=== PATIENT | male | born 1950 | race Caucasian/White ===

== ENCOUNTER 2016-12-04 11:47 | Emergency (ER) | payer OTHER ==
[~2016-12-04] VITALS: Ht 170.2 cm; Wt 68.0 kg
[~2016-12-04 11:47] MED LIST: HYDR1TAB69 PO; LISI10TA9 PO; [UNRECOGNIZED DRUG - OTHER] TOP
[2016-12-04 11:51] VITALS: BP 194/101; PULSE 74; RESP 16; O2SAT 95
--- NOTE | 2016-12-04 12:07 | ED.REPORT ---
HPI-General Illness Date of Service Dec 04, 2016 ED Provider: Ahsan Polanco MD Pt is a 66 year old male with a history of HTN who presents to the ED complaining of dull, aching left shoulder pain onset yesterday morning. He c/o associated confusion, SOB, fatigue, and left arm pain. He denies chest pain, SOB , lower extremity swelling, current confusion, difficulty speaking or finding words, nausea, diaphoresis, and headache. Pt presented to [facility] today and he was referred to the ED for further evaluation due to high blood pressure. 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 His pain is not exacerbated with exertion. Per pt, he has experienced his symptoms previously. He takes 20 mg lisinopril for his hypertension. Pt reports that he measures his blood pressure when he feels "funky," stating that he last checked it 2 weeks ago and it was 151. He denies a history of heart-related medical issues, but his mother has a history of heart-related medical issues that developed when she was 50. Nursing Notes Stated Complaint: HIGH BLOOD PRESSURE Chief Complaint: General Complaint Nursing Notes Reviewed: Yes (Ortho Neuro Management, meds not reconciled) Allergies: Coded Allergies: No Known Allergies (Unverified Allergy, Unknown, 12/27/13) Scheduled ([Betamethasone Dipro]) 0.05 % TOP DAILY Hydrochlorothiazide (Hydrochlorothiazide) 25 Mg Tablet 25 MG PO DAILY Lisinopril-Expunged Drug, Do Not Renew! (Lisinopril-Expunged Drug, Do Not Renew! ) 10 Mg Tablet 10 MG PO DAILY Scheduled PRN Hydrocod/APAP-Expunged, Do Not Renew! (VICODIN 5/500-Expunged Drug, Do Not Renew ) 1 Each Tablet 1 EACH PO Q4-6H PRN PRN General Time Seen by MD: 12:05 Chief Complaint Other (Left arm pain) Hx Obtained From: Patient Arrived By: Walk-in Sudden in Onset?: No Onset Occurred: Yesterday Symptom Duration: Since onset Location: : Arm left: Shoulder left Quality: Painful Severity: Current: Moderate Severity: Maximum: Moderate Recent Healthcare: Recent doctor visit Similar Sx Previous: No Past Medical History Past Medical History Reports: Hypertension, Denies: Coronary artery disease, Diabetes mellitus, Hyperlipidemia Past Surgical History L inguinal hernia Back Family History Cardiac-related issues - mother at 50 Smoking History Never Smoker Social History Alcohol Use: Denies alcohol use Other Social History: Good social support Ambulatory Status Independent Review of Systems Denies difficult finding words Full Review of Systems Constitutional: Reports: Fatigue Respiratory: Denies: Shortness of breath Cardiovascular: Denies: Chest pain GI: Denies: Nausea Musculoskeletal: Reports: Extremity pain, Joint pain (shoulder), Denies: Extremity swelling Skin: Denies Diaphoresis Neurologic: Denies: Headache, Unable to speak Psychiatric: Reports: Confusion (resolved) Complete sys rev & neg: except as marked. Physical Exam Vital Signs Vital Signs Date Time Temp Pulse Resp B/P Pulse Ox O2 Delivery O2 Flow Rate FiO2 12/04/16 14:54 55 20 140/76 98 Room Air 12/04/16 14:31 53 20 131/87 95 Room Air 12/04/16 13:48 55 20 124/76 96 Room Air 12/04/16 13:37 74 20 163/96 96 12/04/16 11:51 36.8 74 16 194/101 95 Room Air Initial VS: Reviewed, Vital signs abnormal (HTN) Head / Eyes: Atraumatic, Normocephalic Neck: Supple, Non-tender, Full range of motion Respiratory: Breath sounds normal, Clear to auscultation, No respiratory distress Cardiovascular: Regular rate & rhythm, Heart sounds normal, Intact distal pulses Abdomen / GI: Soft, Non-tender Extremities: Vascular intact, Neuro intact Skin: Warm, Dry, No cyanosis Neurologic: Alert, Oriented, Nonfocal Psychiatric: Mood/affect normal, Behavior normal General/Constitutional: Awake, Alert Hard of hearing Interpretation & Diagnostics Lab Results Interpretation Result Diagram: 12/04/16 1224 12/04/16 1224 Test 12/04/16 12:24 White Blood Count 10.2th/mm3 (3.8-10.1) Red Blood Count 5.47mil/mm3 (4.40-5.80) Hemoglobin 16.7g/dL (13.8-17.2) Hematocrit 48.1% (41.0-50.0) Mean Corpuscular Volume 87.9fL (81-100) Mean Corpuscular Hemoglobin 30.5pg (27.0-35.0) Mean Corpuscular Hemoglobin Concent 34.7% (32.0-37.0) Red Cell Distribution Width 13.8% (12.3-15.4) Platelet Count 258bil/L (150-400) Neutrophils (%) (Auto) 57.5% (40-74) Lymphocytes (%) (Auto) 33.9% (14-46) Monocytes (%) (Auto) 6.3% (4-12) Eosinophils (%) (Auto) 1.1% (0-5) Basophils (%) (Auto) 0.4% (0-3) Sodium Level 138mEq/L (134-144) Potassium Level 4.7mEq/L (3.5-5.2) Chloride Level 101mEq/L (97-108) Carbon Dioxide Level 22mmol/L (18-29) Blood Urea Nitrogen 16mg/dL (8-27) Creatinine 0.79mg/dL (0.76-1.27) Estimat Glomerular Filtration Rate 104mL/min (>59) Glucose Level 99mg/dL (60-99) Calcium Level 9.1mg/dL (8.5-10.1) Magnesium Level 1.8mg/dL (1.6-2.6) Total Bilirubin 0.6mg/dL (0.0-1.2) Aspartate Amino Transf (AST/SGOT) 18U/L (0-50) Alanine Aminotransferase (ALT/SGPT) 19U/L (0-44) Alkaline Phosphatase 85U/L (25-160) Troponin T 0.010ug/L (0.0-0.011) Total Protein 7.2g/dL (6.4-8.4) Albumin 4.2g/dL (3.4-5.0) Hold Worthington Top Tube Received (Received) Lab Results Interpretation: CBC normal CMP normal Troponin negative and after greater than 24 hours about continuous symptoms, serial markers are not indicated ECG Interpretation ECG Interpretation: q waves inferiorly, new compared to 04/2007 RBBB Left anterior vescicular block Time: 12:21 Interpreted by: ED physician Normal ECG Interpretation: Normal sinus rhythm (rate of 71) X-Ray Chest Interpretation Chest Xray Interpretation: IMPRESSION: Subtle left basilar pulmonary radiopacities. PA and lateral views of the chest are recommended to further characterize this finding. Differential considerations include overlapping vascular and bone shadows versus true airspace disease or pulmonary mass. Dictated by: Alba Fernandez M.D. on 12/04/2016 at 12:46 View: Portable, 1 view Interpretation / Wet Read by: Interpret - Radiologist CT Head Interpretation IMPRESSION: 1. No acute intracranial findings. 2. Mild finding likely associated with microvascular ischemic changes. Dictated by: Alba Fernandez M.D. on 12/04/2016 at 12:51 Study: Head CT no contrast Interpretation / Wet Read by: Interpret - Radiologist Re-Eval/Medical Decision Med Decision/Clinical Course This is a 66-year-old male presents with a chief complaint of high blood pressure, etc. he just felt tired. Left arm discomfort yesterday, not associated with chest pain, shortness of breath, but the fatigue-the symptoms are nonexertional reports she has had intermittent arm discomfort-is main concern was he knew his blood pressure was high. He measured his blood pressure last evening is in the 150s, and this morning was much higher high- density went to the clinic where his blood pressure was close to 200 and sent to the emergency department. He reports he has no complaints out of these at the [facility] department, he is not currently having any chest or arm discomfort. Denies prior history of heart disease. He is initially hypertensive. He is on lisinopril. He has no findings of heart failure evident on clinical exam, he is very hard of hearing which is chronic, but otherwise has a normal exam. EKG temperature is normal sinus rhythm, I do think there are Q waves that are new compared to his previous EKG many years ago in the inferior leads, although it is a bit difficult to be certain of this given the poor quality of the original EKG. Labs were entirely normal, including a negative troponin 24 hours after continuous symptoms-which indicates this is not a acute finding, particularly in the setting of Q waves. He reported a brief episode of confusion that was extremely mild yesterday, and a head CT was obtained was negative. He has no focal deficits or findings of a stroke today. He is not a care for TPA. The patient received a dose of labetalol his blood pressures markedly improved. His remain asymptomatic. At this point I am not finding markers and requires acute hospitalization, the plan is to add hydrochlorothiazide to his regimen of lisinopril and have him follow-up with his PCP for recheck and continue blood pressure monitoring. I believe he is a candidate for outpatient review whether or not a stress test may ultimately warranted, as the EKG abnormalities appear chronic, and his evaluation at apartments not demonstrating an acute problem. he is discharged in good condition. Source of Hx: Old records Time of Eval: 14:17 Patient Status: Condition improved Re-Evaluation/Progress Note: Pt rechecked. Informed pt of plan for discharge. Pt understands and agrees with plan for discharge. F/U instructions and RTER warnings given. All questions addressed. Differential Diagnosis: Negative: Abdominal pain, Acute coronary syndrome, Allergies, Diabetes mellitus, Fracture, Neutropenia, Pneumonia, Seizure disorder Counseled Regarding: Diagnosis, Lab results, Need for follow-up, When/why to return to ED Discharge & Departure Primary Impression: Hypertension Hypertension type: essential hypertension Qualified Code: I10 - Essential ( primary) hypertension Disposition: Home Discharge Condition All VS Reviewed: Yes Condition: Stable Additional Instructions: 1. Your blood tests were normal (no signs of a heart attack, heart damage, or kidney damage from the high blood pressure). 2. Your CT scan of your brain was normal. 3. I recommend adding hydrochlorithiazide (commonly referred to as "HCTZ") as an additional blood pressure medication to take along with your lisinopril. 4. Call for an appointment with your regular doctor for follow up. 5. Return if new or worsening symptoms. Referrals: Pancho Titus MD (PCP) Scribe Attestation Portions of this note were transcribed by Pham Guan. I, Dr. Polanco personally performed the history, physical exam and medical decision-making; I reviewed and confirmed the accuracy of the information in the transcribed note. Signed by: Rhina Delvalle, 12/04/16. copies to: Pancho Titus MD, Matthew F MD Dec 04, 2016 12:07 Pham Huddleston Dec 04, 2016 12:18
[2016-12-04] MEDS ORDERED: Labetalol 5 mg/mL 20 mL Inj IVPUSH ONE (12:25)
[2016-12-04 12:44] LABS: BASOPHILS % (AUTO) 0.4 % (0-3); EOSINOPHILS % (AUTO) 1.1 % (0-5); MONOCYTES % (AUTO) 6.3 % (4-12); Mean Corpuscular Hemoglobin 30.5 pg (27.0-35.0); Mean Corpuscular Volume 87.9 fL (81-100); NEUTROPHILS % (AUTO) 57.5 % (40-74); Platelet Count 258 bil/L (150-400)
--- NOTE | 2016-12-04 12:49 | DRSVH ---
PROCEDURE: X-RAY CHEST ONE VIEW, PORTABLE ([id number]) INDICATIONS: SHORT OF BREATH TECHNIQUE: One view of the chest was acquired. COMPARISON: [facility], , CHEST 2 VIEW, 02/09/2015, 19:27. [facility], CR, CHEST 2VW, 07/25/2011, 12:33. FINDINGS: Surgical changes and devices: None. Lungs and pleura: Subtle pulmonary radiopacities are present at the left lung base. These are new whe n compared with the prior study dated 02/09/15. No pleural effusion or pneumothorax. The lungs are ot herwise clear. Mediastinum: Mediastinal contours appear normal. Heart size is normal. Bones and chest wall: No suspicious bony lesions. Overlying soft tissues appear unremarkable. IMPRESSION: Subtle left basilar pulmonary radiopacities. PA and lateral views of the chest are recomm ended to further characterize this finding. Differential considerations include overlapping vascular and bone shadows versus true airspace disease or pulmonary mass. Dictated by: Alba Fernandez M.D. on 12/04/2016 at 12:46 Approved by: Alba Fernandez M.D. on 12/04/2016 at 12:48
--- NOTE | 2016-12-04 12:54 | DRSVH ---
PROCEDURE: CT BRAIN WITHOUT CONTRAST ([id number]) INDICATIONS: confusion, severe HTN TECHNIQUE: Noncontrast 4.5 mm thick angled axial sections acquired from the foramen magnum to the vertex, with c oronal reformats. COMPARISON: None. FINDINGS: Image quality: Excellent. CSF spaces: Basal cisterns are patent. No extra-axial fluid collections. The ventricles are symmet toan in size and shape. Brain: No intracranial bleeds or masses. There is cerebral volume loss for age, with resultant vent ricular and sulcal prominence. There are periventricular and deep white matter chronic small vessel ischemic changes. There is intracranial internal carotid artery atherosclerosis. Skull and face: Calvarium and visualized facial bones appear intact, without suspicious lesions. Sinuses: Visualized sinuses and mastoids are clear. IMPRESSION: 1. No acute intracranial findings. 2. Mild finding likely associated with microvascular ischemic changes. Dictated by: Alba Fernandez M.D. on 12/04/2016 at 12:51 Approved by: Alba Fernandez M.D. on 12/04/2016 at 12:52
[2016-12-04 13:11] LABS: TROPONIN T 0.01 ug/L (0.0-0.011)
[2016-12-04 13:22] LABS: Magnesium 1.8 mg/dL (1.6-2.6)
[2016-12-04 13:37] VITALS: BP 163/96; PULSE 74; RESP 20; O2SAT 96
[2016-12-04 13:48] VITALS: BP 124/76; PULSE 55; RESP 20; O2SAT 96
[2016-12-04 14:31] VITALS: BP 131/87; PULSE 53; RESP 20; O2SAT 95
[2016-12-04] MEDS ORDERED: HYDR25TA4 PO (14:33)
[2016-12-04 14:54] VITALS: BP 140/76; PULSE 55; RESP 20; O2SAT 98
== END 2016-12-04 14:56 | disposition home or self-care (01) ==
LOC: SED 11:47
DX: I10 Essential (primary) hypertension (principal); R41.0 Disorientation, unspecified; R06.02 Shortness of breath; R53.1 Weakness; M25.512 Pain in left shoulder

== ENCOUNTER 2016-12-23 15:54 | Observation (INO) | payer OTHER, MEDICARE ==
[~2016-12-23] VITALS: Ht 170.2 cm; Wt 67.1 kg
[2016-12-23] VITALS (7 sets, daily range): BP systolic 127–169; BP diastolic 69–87; PULSE 61–83; RESP 15–25; O2SAT 95–97
[~2016-12-23 15:54] MED LIST changes: +HYDR25TA4 PO
--- NOTE | 2016-12-23 16:17 | ED.REPORT ---
HPI-Chest Pain 40 and Over Date of Service Dec 23, 2016 ED Provider: Chico Stone MD The patient is a 67 year old male with a history of hypertension who presents to the ED via EMS with chest discomfort that began just prior to arrival. He describes a "band" of discomfort across his chest that is associated with generalized weakness, SOB and radiating right arm pain. EMS noted RBBB en route. The patient was recently prescribed nitro and he took 3 prior to arrival. Pain is not associated with exertion or "burning" acid reflux symptoms. Patient was seen in the ED 12/04/16 following a hypertensive episode and he was discharged in good condition following a reassuring work-up. He presents to the ED with identical chest/arm discomfort. He denies any recent cough or fever. BP today was normal at home. Current medication atorvastatin, clapitagril and nitro. Nursing Notes Stated Complaint: CHEST PAIN Chief Complaint: Chest Pain Nursing Notes Reviewed: Yes Allergies: Coded Allergies: Penicillins (Verified Allergy, Intermediate, 12/23/16) ciprofloxacin (Verified Allergy, Unknown, 12/23/16) Scheduled Atorvastatin (Lipitor) 10 Mg Tab 10 MG PO DAILY Clopidogrel (Clopidogrel) 75 Mg Tablet 75 MG PO DAILY Hydrochlorothiazide (Hydrochlorothiazide) 25 Mg Tablet 25 MG PO DAILY Lisinopril (Lisinopril) 20 Mg Tablet 20 MG PO QPM Scheduled PRN Nitroglycerin SL (Nitroglycerin SL) 0.4 Mg Tab.subl 0.4 MG SL Q5MIN PRN PRN For Chest Pain General Time Seen by MD: 16:12 Chief Complaint Chest pain Hx Obtained From: Patient Arrived By: Walk-in Sudden in Onset?: Yes Onset Occurred: Just prior to arrival Symptom Duration: Since onset Location: : Chest left: Chest right Quality: Painful Radiation: : Arm right: Does not radiate Migration/Movement: Reports: None Severity: Current: Moderate Severity: Maximum: Moderate Associated with: Reports: Shortness of Breath, Denies: Cough, non-productive, Fever Pertinent Negative: Pt denies other symptoms Recent Healthcare: No recent hospitalization, Recent doctor visit Similar Sx Previous: Yes Risk Factors )( CAD Risk Stratification Risk factors reviewed )( TAD Risk Stratification Risk factors reviewed )( PE Risk Stratification Risk factors reviewed Past Medical History Past Medical History Hypertension Past Surgical History L inguinal hernia Back Family History Cardiac-related issues - mother at 50 Smoking History Current Every Day Smoker, Heavy Tobacco Smoker (since 8 y.o) Social History Alcohol Use: Denies alcohol use Other Social History: Good social support, Local resident Ambulatory Status Independent Review of Systems Denies burning acid reflux pain Constitutional: Denies: Fever Respiratory: Reports: Shortness of breath, Denies: Non-productive cough Cardiovascular: Reports: Chest pain Musculoskeletal: Reports: Extremity pain (R arm pain) Complete sys rev & neg: except as marked. Physical Exam Initial Vital Signs Vital Signs (First) Date Time Temp Pulse Resp B/P Pulse Ox O2 Delivery O2 Flow Rate FiO2 12/23/16 16:13 36.2 79 22 127/72 96 Room Air Initial VS: Reviewed Head / Eyes: Atraumatic, Normocephalic, PERRL Neck: Supple, Non-tender, Full range of motion Extremities: Vascular intact, Neuro intact, No swelling, No tenderness Skin: Warm, Dry, No cyanosis Neurologic: Alert, Oriented, Nonfocal Psychiatric: Mood/affect normal, Behavior normal, Normal thought content General/Constitutional: Awake, Alert, No acute distress Respiratory / Chest: Atraumatic, Breath sounds NL, Breath sounds = bilat, No respiratory distress, No chest tenderness (No reporducible pain with palpation) Cardiovascular: Heart rate NL, Regular rhythm, Heart sounds NL, No gallop, No murmurs, No rubs No calf swelling or tenderness Abdomen: Atraumatic, Soft, Non-tender, No distention Interpretation & Diagnostics Lab Results Interpretation Result Diagram: 12/23/16 1718 12/23/16 1718 Test 12/23/16 17:18 White Blood Count 12.2th/mm3 (3.8-10.1) Red Blood Count 5.51mil/mm3 (4.40-5.80) Hemoglobin 16.8g/dL (13.8-17.2) Hematocrit 47.9% (41.0-50.0) Mean Corpuscular Volume 86.9fL (81-100) Mean Corpuscular Hemoglobin 30.5pg (27.0-35.0) Mean Corpuscular Hemoglobin Concent 35.1% (32.0-37.0) Red Cell Distribution Width 13.5% (12.3-15.4) Platelet Count 288bil/L (150-400) Neutrophils (%) (Auto) 69.8% (40-74) Lymphocytes (%) (Auto) 20.6% (14-46) Monocytes (%) (Auto) 7.4% (4-12) Eosinophils (%) (Auto) 1.1% (0-5) Basophils (%) (Auto) 0.4% (0-3) Sodium Level 137mEq/L (134-144) Potassium Level 3.9mEq/L (3.5-5.2) Chloride Level 100mEq/L (97-108) Carbon Dioxide Level 21mmol/L (18-29) Blood Urea Nitrogen 23mg/dL (8-27) Creatinine 0.97mg/dL (0.76-1.27) Estimat Glomerular Filtration Rate 82mL/min (>59) Glucose Level 118mg/dL (60-99) Calcium Level 9.3mg/dL (8.5-10.1) Magnesium Level 2.0mg/dL (1.6-2.6) Total Bilirubin 0.5mg/dL (0.0-1.2) Aspartate Amino Transf (AST/SGOT) 19U/L (0-50) Alanine Aminotransferase (ALT/SGPT) 24U/L (0-44) Alkaline Phosphatase 83U/L (25-160) Total Protein 7.1g/dL (6.4-8.4) Albumin 4.0g/dL (3.4-5.0) Hold [place]thing[place] Top Tube Received (Received) ECG Interpretation ECG Interpretation: Sinus rhythm Rate 77 bpm RBBB and Left anterior fasicular block No acute ST segment changes No T wave abnormalities Compared to prior 12/04/16 - No change Time: 16:34 Interpreted by: ED physician X-Ray Chest Interpretation Chest Xray Interpretation: IMPRESSION: No acute disease Dictated by: Juan Crowley M.D. on 12/23/2016 at 16:08 Interpretation / Wet Read by: Interpret - Radiologist Re-Eval/Medical Decision Med Decision/Clinical Course The patient is a 67 year old male with a history of hypertension who presents to the ED via EMS with chest discomfort that began just prior to arrival. He describes a "band" of discomfort across his chest that is associated with generalized weakness, SOB and radiating right arm pain. EMS noted RBBB en route. The patient was recently prescribed nitro and he took 3 prior to arrival. He saw his primary care physician for his chest pain earlier today and an outpatient stress test was ordered however he continues to have worsening chest pain. Here in the emergency department the patient was afebrile with stable vital signs and examination as above. 324 mg of aspirin were given. He reports that he is now chest pain-free. EKG Sinus rhythm Rate 77 bpm RBBB and Left anterior fasicular block No acute ST segment changes No T wave abnormalities Compared to prior 12/04/16 - No change Chest X-ray IMPRESSION: No acute disease LABS Trop x2 negative CBC - Leukocytosis 12.2 CMP unremarkable Pt presents with concerning history of chest pain in the setting of multiple risk factors including smoking, hypertension and hyperlipidemia. He continues to have chest pain despite prescription for nitroglycerin from his primary care physician earlier today. Presentation is not suggestive of acute pulmonary embolism and he is without tachypnea, tachycardia or hypoxia. He has no recent major pulmonary embolism risk factors and has no evidence on examination of DVT. I do not feel that further workup for pulmonary embolism as a cause of his pain is immediately indicated. Chest x-ray demonstrates no pneumonia or pneumothorax. He has no widened mediastinum and the nature of his pain is less convincing for aortic dissection. I am certainly concerned for cardiac etiologies of this pain though initial EKG and troponin are reassuring. Patient was discussed with the admitting hospitalist accepted for further expedited workup for acute coronary syndrome. He was transferred in stable condition. Time of Eval: 16:54 Patient Status: Condition improved Re-Evaluation/Progress Note: Patient condition is re-evaluated. He is informed of his current and pending results. All questions about the intended treatment plan are addressed. Patient understands and agrees with the plan. Time of Eval: 19:29 Patient Status: Condition improved Re-Evaluation/Progress Note: He is offered admission for further evaluation and a cardiac stress test. Patient is agreeable to admission at this time. Consultation : Referral / Consult Name: Krystian Lawrence MD Consulted With: Hospitalist Call Returned at: 19:09 Filling Hauler: Will see patient, Agrees with eval, Agrees with plan, Accepts admit Note: Discussed pt condition. Will admit. Counseled Regarding: Diagnosis, Lab results, Need for admission Discharge & Departure Primary Impression: Chest pain Chest pain type: unspecified Qualified Code: R07.9 - Chest pain, unspecified Additional Impressions: Hypertension Hypertension type: unspecified secondary hypertension Qualified Code: I15.9 - Secondary hypertension, unspecified Hyperlipidemia Hyperlipidemia type: unspecified Qualified Code: E78.5 - Hyperlipidemia, unspecified Tobacco abuse Disposition: ADMITTED TO HOSPITAL Discharge Condition All VS Reviewed: Yes Condition: Improved Referrals: Pancho Titus MD (PCP) Scribe Attestation Portions of this note were transcribed by J Carlos Soares. I, Dr. Stone, personally performed the history, physical exam and medical decision-making; I reviewed and confirmed the accuracy of the information in the transcribed note. Signed by: J Carlos Soares, 12/23/16. copies to: Pancho Titus MD, Beck O MD Dec 23, 2016 16:17 J CARLOS SOARES Dec 23, 2016 16:21
[2016-12-23] MEDS ORDERED: ATRV10T PO (17:05)
[2016-12-23] MEDS ORDERED: NITR0.4T38 SL (17:05)
[2016-12-23] MEDS ORDERED: CLOP75TA28 PO (17:05)
--- NOTE | 2016-12-23 17:11 | DRSVH ---
PROCEDURE: X-RAY CHEST, TWO VIEWS ([id number]) INDICATIONS: CHEST PAIN TECHNIQUE: 2 views of the chest were acquired. COMPARISON: [facility], CR, XR CHEST 1VW (PORTABLE), 12/04/2016, 12:24. FINDINGS: Surgical changes and devices: None. Lungs and pleura: No pleural effusions or pneumothorax. Lungs are clear. Focal opacity previously seen in left lung base is no longer visualized Mediastinum: Mediastinal contours are normal. Heart size is normal. Bones and chest wall: No suspicious bony abnormalities. Lateral curvature of the spine as before. So ft tissues appear unremarkable. IMPRESSION: No acute disease Dictated by: Juan Crowley M.D. on 12/23/2016 at 16:08 Approved by: Juan Crowley M.D. on 12/23/2016 at 16:09
[2016-12-23] MEDS ORDERED: Ondansetron 2 mg/mL 2 mL Inj IVPUSH PRN ×2 (17:20→19:25)
[2016-12-23] MEDS ORDERED: Alum-Mag Hydrox-Simeth 30 mL Suspension PO PRN ×2 (17:20→19:25)
[2016-12-23 17:22] LABS: BASOPHILS % (AUTO) 0.4 % (0-3); EOSINOPHILS % (AUTO) 1.1 % (0-5); MONOCYTES % (AUTO) 7.4 % (4-12); Mean Corpuscular Hemoglobin 30.5 pg (27.0-35.0); Mean Corpuscular Volume 86.9 fL (81-100); NEUTROPHILS % (AUTO) 69.8 % (40-74); Platelet Count 288 bil/L (150-400)
[2016-12-23 17:46] LABS: TROPONIN T < 0.010 ug/L (0.0-0.011)
[2016-12-23] MEDS ORDERED: Polyethylene Glycol (PEG) 17 Gm Powder PO PRN (19:25)
--- NOTE | 2016-12-23 19:50 | PCM.HPMED ---
Subjective Date of Service Dec 23, 2016 Primary Provider: Admitting Physician: Primary Care Physician: Pancho Titus MD Attending Physician: Admit Status: From the Emergency Department Chief Complaint: Chest Pain History of Present Illness: Patient is a 66-year-old male presented to the emergency department with chest pain. He has a history of hypertension, and herniated cervical disks. Patient is significantly hard of hearing and has difficulty with the interview. The patient is a 66-year-old male that presented to the emergency department by EMS after developing "chest discomfort". Patient is confident that the symptoms are a manifestation of anxiety. He states that he has a lot of anxiety that is not treated. Patient took 2 nitros prior to being picked up by EMS. He states that these decreased his blood pressure which helped the discomfort. Patient denies a feeling of pain. He admits to anxiety, numbness in his hands bilaterally, nausea, diaphoresis, blurred vision. He denies vomiting, weakness, headache. EMS noted right bundle branch block en route to the emergency department. Patient is a heavy smoker and has been for almost 60 years, has hypertension that he has not been treating adequately due to noncompliance. He was seen in the outpatient clinic by his doctor, Dr. Titus today before the episode occurred. He was referred for a nuclear medicine cardiac stress test to be performed within 1 week. He is active and at a healthy weight. Patient admitted to not starting his hydrochlorothiazide which was prescribed 2 weeks ago until Thursday and states that he has been feeling better since that point. He has yet to start his Lipitor but agreed that he will start taking that. He started taking his hydrochlorothiazide on Thursday after he had a similar incident to today in which he felt his discomfort in his chest, poor balance, and was unable to hold a pen. He did not have nitroglycerin at the time and it took about 30 minutes for symptoms to pass. At baseline patient has previously herniated cervical disks with surgical repair , some bilateral weakness in his arms. Review of Systems: Complete ROS was performed and pertinent positives and negatives included in the history of present illness. All other findings were negative. Allergies Coded Allergies: Penicillins (Verified Allergy, Intermediate, 12/23/16) ciprofloxacin (Verified Allergy, Unknown, 12/23/16) Home Medications Atorvastatin (Lipitor) 10 Mg Tab 10 MG PO DAILY Clopidogrel (Clopidogrel) 75 Mg Tablet 75 MG PO DAILY Hydrochlorothiazide (Hydrochlorothiazide) 25 Mg Tablet 25 MG PO DAILY Lisinopril 20 mg tablet by mouth daily Nitroglycerin SL (Nitroglycerin SL) 0.4 Mg Tab.subl 0.4 MG SL first sign of attack PMH 1. Hypertension 2. Cervical Stenosis 3. Microcytic hematuria 4. Macular degeneration left eye Surgical History 1. B/L inguinal hernia 2. Back for herniated disk Family History Cardiac-related issues - mother at 50 Social History Hx Alcohol Use: No Hx Substance Use: No Smoking Status: Current Every Day Smoker, Heavy Tobacco Smoker (since 8 y.o) Exam Vital Signs Vital Sign - Last Date Time Temp Pulse Resp B/P Pulse Ox O2 Delivery O2 Flow Rate FiO2 12/23/16 19:24 83 25 137/87 97 Room Air 12/23/16 16:13 36.2 Exam General: Nondistressed, well-developed well-nourished male HEENT: NC/AT, PERRLA, EOM intact. Nontender sinuses, no nasal discharge. Poor dentation, no erythema, nor exudate present in oropharynx. No thyromegaly appreciated. CV: Regular rate and rhythm, no murmurs, gallops, or rubs appreciated. No JVD. 2+ pulses bilaterally upper and lower extremity. RESP: Inspiratory wheezes throughout. Normal excursion. ABD: Bowel sounds normal, nondistended, nontender to palpation. EXT: No joint swelling, no edema appreciated LYMPH: No cervical or axillary adenopathy appreciated NEURO: Symmetric face, cranial nerves grossly intact, strength intact bilaterally upper and lower extremities, sensation to light touch intact bilaterally upper and lower extremities. PSYCH: Oriented 3. Linear and appropriate conversation. Skin: No rashes or ecchymosis appreciated Lab and Diagnostics Result Diagram: 12/23/16171712/23/161717 X-Rays, CTs and MRIs PROCEDURE: X-RAY CHEST, TWO VIEWS ([id number]) IMPRESSION: No acute disease 12-lead ECG ECG Interpretation: Sinus rhythm Rate 77 bpm RBBB and Left anterior fasicular block No acute ST segment changes No T wave abnormalities Compared to prior 12/04/16 - No change Time: 16:34 Interpreted by: ED physician Assessment & Plan 66-year-old male with chest discomfort and a history of uncontrolled hypertension, herniated cervical disks. 1. Chest Pain, present on admission and ongoing -Patient is a heavy tobacco user, male, per outpatient chart review hypercholesterolemia and is therefore at risk for heart disease. May consider herniated disc for arm weakness, panic attack but also explain symptoms. -Trop negative X2 -CBC - Leukocytosis 12.2 -CMP unremarkable -Nuclear medicine stress test be performed tomorrow -Continue home medications 2. Hypertension, present on admission and ongoing -Patient states that he has not been taking his hydrochlorothiazide but will now do so, counseled about the importance of blood pressure management - Continue home medications Patient is being admitted as observation status. I expect him to spend less than 2 midnights in the hospital Pain Evaluation: Adequate Pain Control GI Prophylaxis: Not indicated Resuscitation Status: CPR: Attempt Resuscitation Attending Statement The patient was seen and examined together with Dr. Albarado on 12/23 and I agree with the history, exam and plan as outlined in the note above. Amy Albarado DO Dec 23, 2016 19:32 Krystian Lawrence MD Dec 23, 2016 23:28
[2016-12-23] MEDS ORDERED: LISI-567 PO (20:08)
--- NOTE | 2016-12-23 21:05 | NUR ---
admit note" pt.admitted for chest pain,pressure, nausea,diaphoretic, headache since 2pm today, pt.states he had similar sx on sat. pt. has htn, smoked 2 packs day for many years.
[2016-12-23] MEDS ORDERED: LORazepam 1 mg Tablet PO PRN (21:55)
[2016-12-23 23:24] LABS: TROPONIN T < 0.010 ug/L (0.0-0.011)
[2016-12-24 04:52] VITALS: BP 124/78; PULSE 63; RESP 16; O2SAT 96
[2016-12-24 08:57] VITALS: BP 136/90; PULSE 61; RESP 20; O2SAT 95
--- NOTE | 2016-12-24 09:00 | NUR ---
Social Work-initial assessment/ readiness for discharge: Data:See initial assessment. Pt is a 66 y/o male who was admitted on 12/23/16 for chest pain per H&P. Pt's insurance is [employer] and PCP is arian Titus MD. EMR reviewed. SW met with pt at bedside, SW role explained. Pt is alert and oriented x3. Pt resides at home with his in [place] where he remains independent with ADLS. pt drives and does not use any DME. Pt has no HH or SNF history. Pt has no terminal manager care insurance or VA benefits. SW discussed DPOA/ advanced directive, pt confirms this has been completed, SW encouraged a copy to be brought in. No concerns noted around pt's capacity for self care from RN or MD. SW provided pt with discharge planning checklist and encouraged him to call with any questions,phone number provided on white board in room. Pt confirms his daughter Lonnie will provide transport home at discharge. No anticipated discharge needs. SW will continue to follow if needs arise. Assessment:pt who is independent at baseline. Plan:Pt to discharge home when medically stable via POV. No anticipated discharge needs. SW will continue to follow if needs arise. OLESYA Dutton Addendum: 12/24/16 at 0904 by YULI NARAYANAN Amended: Links added.
[2016-12-24 09:45] VITALS: PULSE 60
--- NOTE | 2016-12-24 10:50 | NUR ---
Affect Pt alert and pleasant. No concerns voiced. Awaiting MIBI procedure in the AM. NPO since midnight. Craving cigarettes according to pt.
[2016-12-24 16:26] VITALS: BP 122/81; PULSE 62; RESP 18; O2SAT 96
--- NOTE | 2016-12-24 16:26 | DRSVH ---
PROCEDURE: 1 DAY TREADMILL STRESS TEST Rest and exercise myocardial perfusion SPECT with gated imaging and ejection fraction RADIOPHARMACEUTICAL: 8.89 mCi Tc-99m tetrafosmin IV at rest and 25.1 mCi Tc-99m tetrafosmin IV at pea k exercise. [id number] was performed. INDICATIONS: 66 year-old male with chest pain, and hypertension. TECHNIQUE: Radiopharmaceutical was injected at peak stress test, and also at rest. SPECT images wer e obtained. SPECT myocardial perfusion images were displayed in short axis, horizontal long axis, an d vertical long axis views. Gated images were reviewed using [employer]QUANT software. COMPARISON: None. CARDIAC STRESS: A standard Thomas treadmill exercise tolerance test was performed by the patient under the supervision of an attending staff. The patient exercised for 8 minutes and 3 seconds; functional aerobic impair ment (MICHAELA) is -9%. Hemodynamic data: There is normal blood pressure and heart rate response to exercise stress. Patien t achieved 84% of maximum predicted heart rate at peak exercise. Symptoms: Patient denied chest pain during exercise, but developed claudication and calf pain. EKG: No diagnostic EKG changes of ischemia; there is incomplete right bundle branch block with occas ional premature ventricular contractions. FINDINGS: Raw data: There is good myocardial labeling by radiotracer. No significant motion artifacts. Left ventricle function: Gated images demonstrate normal left ventricle wall thickening. No segment al wall motion abnormality. No transient ischemic dilation. The left ventricle resting end-diastoli c volume is 66 mL. Left ventricle stress ejection fraction is 87%; normal values are above 45%. Myocardial perfusion: There is mildly decreased tracer uptake throughout the inferior wall, fixed bet ween stress and resting images. Finding completely normalizes on corresponding stress prone imaging. Remainder of the left ventricle myocardium demonstrates normal tracer uptake. IMPRESSION: 1. Normal myocardial perfusion study for ischemia. Findings consistent with diaphragmatic attenuation artifact involving the inferior wall. 2. Normal left ventricle cavity size, without segmental wall motion abnormalities. The calculated lef t ventricle ejection fraction is within normal limits. 3. Expected hemodynamic response to exercise stress testing, with above average exercise capacity for age. PQRS ATTESTATIONS: Measure 322 - Is this imaging test primarily performed on a low-risk surgery patient for preoperative evaluation within 30 days preceding their low-risk non-cardiac surgery? Low-risk surgery is defined as cardiac or myocardial infarction less than 1%, including (but not limited to) endoscopic pr ocedures, superficial procedures, cataract surgery, and excisional breast surgery: Answer: No Measure 323 - Is this imaging test performed primarily for the monitoring of an asymptomatic patient who had percutaneous coronary intervention on the visit date or within 2 years of the visit date? An swer: No Measure 324 - Is this imaging test performed primarily for the initial detection and risk assessment on an asymptomatic, low coronary heart disease patient? Low CHD risk definition = clinicians should consider the maximum number of available patient factors used to estimate risk based on [place] (A TP III criteria), typically age, gender, diabetes, smoking status, and use of blood pressure medicati on, and integrate age appropriate estimates for missing elements, such as LDL or standard blood press ure. Answer: No Dictated by: Chandan Barrett M.D. on 12/24/2016 at 16:15 Approved by: Chandan Barrett M.D. on 12/24/2016 at 16:24
[2016-12-24] MEDS ORDERED: LORA-303 PO (16:38)
--- NOTE | 2016-12-24 16:41 | PCM.DC.MED ---
Discharge Summary Date of Service Dec 24, 2016 Dates of Hospitalization Date of Hospital Admission Dec 23, 2016 at 20:20 Date of Discharge: Dec 24, 2016 Providers: Admitting Physician: Krystian Lawrence MD Primary Care Physician: Pancho Titus MD Attending Physician: Angel Lopez MD Diagnosis at Time of Discharge Diagnosis at Time of Discharge Chest Pain, present on admission and ongoing Hypertension Smoker, chronic, active Procedures XRay, CTs & MRIs PROCEDURE: X-RAY CHEST, TWO VIEWS ([id number]) IMPRESSION: No acute disease ECG 12 Lead ECG Interpretation: Sinus rhythm Rate 77 bpm RBBB and Left anterior fasicular block No acute ST segment changes No T wave abnormalities Compared to prior 12/04/16 - No change Time: 16:34 Interpreted by: ED physician Invasive Procedures [facility] Diagnostic [place] [address] Patient Name: JULIANEN GOFF MR#: [id number] Location: [facility] [place] Ordering Phys: Amy Albarado DO Date of Service: 12/24/162126 PROCEDURE: 1 DAY TREADMILL STRESS TEST Rest and exercise myocardial perfusion SPECT with gated imaging and ejection fraction RADIOPHARMACEUTICAL: 8.89 mCi Tc-99m tetrafosmin IV at rest and 25.1 mCi Tc-99m tetrafosmin IV at peak exercise. [id number] was performed. INDICATIONS: 66 year-old male with chest pain, and hypertension. TECHNIQUE: Radiopharmaceutical was injected at peak stress test, and also at rest. SPECT images were obtained. SPECT myocardial perfusion images were displayed in short axis, horizontal long axis, and vertical long axis views. Gated images were reviewed using [employer] software. COMPARISON: None. CARDIAC STRESS: EKG: No diagnostic EKG changes of ischemia; there is incomplete right bundle branch block with occasional premature ventricular contractions. FINDINGS: Raw data: There is good myocardial labeling by radiotracer. No significant motion artifacts. Left ventricle function: Gated images demonstrate normal left ventricle wall thickening. No segmental wall motion abnormality. No transient ischemic dilation. The left ventricle resting end-diastolic volume is 66 mL. Left ventricle stress ejection fraction is 87%; normal values are above 45%. Myocardial perfusion: There is mildly decreased tracer uptake throughout the inferior wall, fixed between stress and resting images. Finding completely normalizes on corresponding stress prone imaging. Remainder of the left ventricle myocardium demonstrates normal tracer uptake. IMPRESSION: 1. Normal myocardial perfusion study for ischemia. Findings consistent with diaphragmatic attenuation artifact involving the inferior wall. 2. Normal left ventricle cavity size, without segmental wall motion abnormalities. The calculated left ventricle ejection fraction is within normal limits. 3. Expected hemodynamic response to exercise stress testing, with above average exercise capacity for age. Brief History Per HPI on 12/23/[address] Albarado Patient is a 66-year-old male presented to the emergency department with chest pain. He has a history of hypertension, and herniated cervical disks. Patient is significantly hard of hearing and has difficulty with the interview. The patient is a 66-year-old male that presented to the emergency department by EMS after developing "chest discomfort". Patient is confident that the symptoms are a manifestation of anxiety. He states that he has a lot of anxiety that is not treated. Patient took 2 nitros prior to being picked up by EMS. He states that these decreased his blood pressure which helped the discomfort. Patient denies a feeling of pain. He admits to anxiety, numbness in his hands bilaterally, nausea, diaphoresis, blurred vision. He denies vomiting, weakness, headache. EMS noted right bundle branch block en route to the emergency department. Patient is a heavy smoker and has been for almost 60 years, has hypertension that he has not been treating adequately due to noncompliance. He was seen in the outpatient clinic by his doctor, Dr. Titus today before the episode occurred. He was referred for a nuclear medicine cardiac stress test to be performed within 1 week. He is active and at a healthy weight. Patient admitted to not starting his hydrochlorothiazide which was prescribed 2 weeks ago until Thursday and states that he has been feeling better since that point. He has yet to start his Lipitor but agreed that he will start taking that. He started taking his hydrochlorothiazide on Thursday after he had a similar incident to today in which he felt his discomfort in his chest, poor balance, and was unable to hold a pen. He did not have nitroglycerin at the time and it took about 30 minutes for symptoms to pass. At baseline patient has previously herniated cervical disks with surgical repair , some bilateral weakness in his arms. Hospital Course 66-year-old male with chest discomfort and a history of uncontrolled hypertension, herniated cervical disks. 1. Chest Pain, present on admission and ongoing - May be related to anxiety versus undiagnosed COPD. Likely MSK given chronic shoulder pain. ACS ruled out. - Patient is a heavy tobacco user, male, per outpatient chart review hypercholesterolemia and is therefore at risk for heart disease. -Trop negative X2 -Nuclear medicine stress test negative for ischemia. -Continue home medications -Have added Lorazepam for anxiety. 2. Hypertension, present on admission and ongoing -Patient states that he has not been taking his hydrochlorothiazide but will now do so, counseled about the importance of blood pressure management - Continue home medications Smoker, chronic, active Pt likely has undiagnosed COPD. Is not on home meds. Follow up with PCP in 1 week for evaluation for COPD. Dispo- Have added Lorazepam for anxiety. See you primary doctor refill. Exam Vital Signs (Last) Date Time Temp Pulse Resp B/P Pulse Ox O2 Delivery O2 Flow Rate FiO2 12/24/16 16:26 36.6 62 18 122/81 96 Room Air Test 12/23/16 17:18 12/23/16 22:40 White Blood Count 12.2th/mm3 (3.8-10.1) Red Blood Count 5.51mil/mm3 (4.40-5.80) Hemoglobin 16.8g/dL (13.8-17.2) Hematocrit 47.9% (41.0-50.0) Mean Corpuscular Volume 86.9fL (81-100) Mean Corpuscular Hemoglobin 30.5pg (27.0-35.0) Mean Corpuscular Hemoglobin Concent 35.1% (32.0-37.0) Red Cell Distribution Width 13.5% (12.3-15.4) Platelet Count 288bil/L (150-400) Neutrophils (%) (Auto) 69.8% (40-74) Lymphocytes (%) (Auto) 20.6% (14-46) Monocytes (%) (Auto) 7.4% (4-12) Eosinophils (%) (Auto) 1.1% (0-5) Basophils (%) (Auto) 0.4% (0-3) Sodium Level 137mEq/L (134-144) Potassium Level 3.9mEq/L (3.5-5.2) Chloride Level 100mEq/L (97-108) Carbon Dioxide Level 21mmol/L (18-29) Blood Urea Nitrogen 23mg/dL (8-27) Creatinine 0.97mg/dL (0.76-1.27) Estimat Glomerular Filtration Rate 82mL/min (>59) Glucose Level 118mg/dL (60-99) Hemoglobin A1c 5.8% (4.8-5.6) Calcium Level 9.3mg/dL (8.5-10.1) Magnesium Level 2.0mg/dL (1.6-2.6) Total Bilirubin 0.5mg/dL (0.0-1.2) Aspartate Amino Transf (AST/SGOT) 19U/L (0-50) Alanine Aminotransferase (ALT/SGPT) 24U/L (0-44) Alkaline Phosphatase 83U/L (25-160) Total Protein 7.1g/dL (6.4-8.4) Albumin 4.0g/dL (3.4-5.0) Hold [place] Top Tube Received (Received) Troponin T < 0.010ug/L (0.0-0.011) Thyroid Stimulating Hormone (TSH) 2.390uIU/mL (0.450-4.500) Discharge Medications Discharge Medications Atorvastatin (Lipitor) 10 Mg Tab 10 MG PO DAILY (Reported) Clopidogrel (Clopidogrel) 75 Mg Tablet 75 MG PO DAILY (Reported) Hydrochlorothiazide (Hydrochlorothiazide) 25 Mg Tablet 25 MG PO DAILY Prescribed by: JESU YIP MD Lisinopril (Lisinopril) 20 Mg Tablet 20 MG PO QPM (Reported) As needed Nitroglycerin SL (Nitroglycerin SL) 0.4 Mg Tab.subl 0.4 MG SL Q5MIN PRN PRN For Chest Pain (Reported) Additional med instructions Have added Lorazepam for anxiety. See you primary doctor refill. Followup Plan Disposition: home Follow-up Provider: Pancho Titus MD Follow-up with PCP in: 1 week Angel Lopez MD Dec 24, 2016 16:41
--- NOTE | 2016-12-24 16:44 | PCM.DIMED ---
Discharge Instructions Date of Service Dec 24, 2016 Dates of Hospitalization Dec 23, 2016 at 20:20 Discharge Diagnosis Discharge Diagnosis Chest Pain, present on admission and ongoing Hypertension Smoker, chronic, active Medication Instructions Additional med instructions Have added Lorazepam for anxiety. See you primary doctor refill. Patient Instructions Follow-up Provider: Pancho Titus MD Follow-up with PCP in: 1 week Angel Lopez MD Dec 24, 2016 16:43
--- NOTE | 2016-12-24 17:23 | NUR ---
Social Work-discharge: Data:EMR Reviewed. Pt is on day 1 of hospitalization for chest pain per H&P. Pt is medically stable for discharge. Pt has been up independent in his room. No discharge needs identified. SW will continue to follow if needs arise. Assessment:Pt who is independent at baseline. Plan:Pt to discharge home today via POV. No discharge needs identified. SW will continue to follow if needs arise. OLESYA Dutton
--- NOTE | 2016-12-24 17:30 | NUR ---
Discharge Pt given discharge instructions and entire packet. No concerns noted. Pt taken to lobby in w/c with daughter by his side.
== END 2016-12-24 17:32 | disposition home or self-care (01) ==
LOC: EDSEX 15:54 → EDUNIT# 15:54 → EDBD 15:54 → SED 15:54 → INTOOBSV 20:20 → MPC 20:20
PROVIDERS: ADMIT Hospitalist; ATTEND Internal Medicine
DX: R07.89 Other chest pain (principal); I10 Essential (primary) hypertension; M50.20 Other cervical disc displacement, unspecified cervical region; H35.30 Unspecified macular degeneration; F17.210 Nicotine dependence, cigarettes, uncomplicated; Z79.899 Other long term (current) drug therapy
CPT/HCPCS: 36415; 71020; 78452; 80053; 82948; 83036; 83735; 84443; 84484; 85025; 93005; 93017; 99285; A9502; G0378